=== PATIENT | female | born 1985 | race Caucasian/White ===

== ENCOUNTER 2016-08-08 09:32 | Emergency (ER) | payer MEDICAID ==
[~2016-08-08] VITALS: Ht 160 cm; Wt 63.6 kg
[~2016-08-08 09:32] MED LIST: BACTRIM DS 8001 TAB PO; CEFTIN500 MG PO; CEPHALEXIN500 M1 PO; DEPO-PROVER150 MG/M1 IM; DOXYCYCLINE 10100 MG PO; FLEXERIL 1010 MG/TAB PO; GENTAMICIN EYE D5 ML OD; MARNATAL-F1 CAP PO; MOTRIN 400400 MG/TAB PO; MOTRIN 600600 MG/TAB PO; MOTRIN 800800 MG/TAB PO; NEXIUM24HROTC PO; NO HOME MEDICATIONS; NORCO 325 MG-51 TAB PO; PERCOCET 325 MG1 TA2 PO; PRENATAL1 TA4 PO; PRENATAL1 TA5 PO; XANAX 0.5MG0.5 MG PO; ZITHROMAX Z PA250 MG PO
[2016-08-08 09:39] VITALS: BP 131/58; PULSE 64; TEMP 98.3
[2016-08-08] MEDS ORDERED: KLONOPIN 0.5MG0.5 MG PO (09:44)
[2016-08-08] MEDS ORDERED: ULTRAM 50MG TAB50 MG PO (10:05)
[2016-08-08] MEDS ORDERED: PEN-VEE K500 MG PO (10:05)
== END 2016-08-08 10:19 | disposition home or self-care (01) ==
LOC: COL.ER 09:32
DX: K08.89 Other specified disorders of teeth and supporting structures (principal); F17.210 Nicotine dependence, cigarettes, uncomplicated

== ENCOUNTER 2016-10-21 12:31 | Emergency (ER) | payer MEDICAID ==
[~2016-10-21] VITALS: Ht 160 cm; Wt 59.1 kg
[~2016-10-21 12:31] MED LIST changes: +KLONOPIN 0.5MG0.5 MG PO; +PEN-VEE K500 MG PO; +ULTRAM 50MG TAB50 MG PO
[2016-10-21 12:32] VITALS: BP 115/49; TEMP 98.2
[2016-10-21] MEDS ORDERED: DOXYCYCLINE 10100 MG PO (13:21)
[2016-10-21] MEDS ORDERED: NORCO 325 MG-51 TAB PO (13:21)
[2016-10-21 13:35] VITALS: PULSE 86
== END 2016-10-21 13:35 | disposition home or self-care (01) ==
LOC: COL.ER 12:31
DX: N61.1 Abscess of the breast and nipple (principal)

== ENCOUNTER 2016-12-04 17:40 | Emergency (ER) | payer MEDICAID ==
[~2016-12-04] VITALS: Ht 160 cm; Wt 56.8 kg
[2016-12-04 17:43] VITALS: BP 119/74; TEMP 98.6
[2016-12-04 18:32] LABS: PH 6 (5-8); SQUAMOUS EPITHELIAL 0-2 /hpf; URINE APPEARANCE Turbid; URINE BACTERIA Rare /hpf; URINE BILIRUBIN Negative (NEGATIVE); URINE BLOOD Negative (NEGATIVE); URINE COLOR Amber; URINE GLUCOSE Negative (NEGATIVE); URINE KETONE Negative (NEGATIVE); URINE UROBILINOGEN Negative (NEGATIVE); URINE WBC None Seen /hpf
[2016-12-04] MEDS ORDERED: MACROBID 1100 MG/CAP PO (19:11)
[2016-12-04 19:21] VITALS: PULSE 86
== END 2016-12-04 19:22 | disposition home or self-care (01) ==
LOC: COL.ER 17:40
PROVIDERS: Physician Assistant Medical
DX: N39.0 Urinary tract infection, site not specified (principal); K21.9 Gastro-esophageal reflux disease without esophagitis; F32.9 Major depressive disorder, single episode, unspecified; F17.210 Nicotine dependence, cigarettes, uncomplicated; Z98.51 Tubal ligation status

== ENCOUNTER 2017-03-10 13:37 | Emergency (ER) | payer MEDICAID ==
[~2017-03-10] VITALS: Ht 160 cm; Wt 59.1 kg
[~2017-03-10 13:37] MED LIST changes: +MACROBID 1100 MG/CAP PO
[2017-03-10 13:44] VITALS: TEMP 98.7
[2017-03-10 14:21] LABS: BASO # 0.1 (0.0-0.2); BASO % 0.7 % (0.0-2.0); EOS # 0.2 (0.0-0.7); EOS % 1.3 % (0-4.0); GRAN # 8.1 (1.4-6.5); GRAN % 64.1 % (42.2-75.2); HEMOGLOBIN 17.1 g/dl (12.5-16.0); LYMPH # 3.1 (1.2-3.4); LYMPH % 24.4 % (20.0-51.0); MEAN CELL VOLUME 91 fl (80.0-100.0); MEAN CORPUSCULAR HEMOGLOBIN 32 pg (27.0-31.0); MEAN CORPUSCULAR HGB CONC 35 g/dl (33.0-37.0); MEAN PLATELET VOLUME 9.5 fl (7.4-10.4); MONO # 1.2 (0.1-0.6); MONO % 9.2 % (1.7-9.3); PLATELET COUNT 324 K/mm3 (130-400); RED BLOOD COUNT 5.37 M/mm3 (4.10-5.30); REDCELL DISTRIBUTION WIDTH-CV 12.4 % (11.5-14.5); WHITE BLOOD COUNT 12.7 K/mm3 (4.8-10.8)
[2017-03-10 14:30] LABS: ADJUSTED CALCIUM 9.1 mg/dL (8.4-10.2); ALANINE AMINOTRANSFERASE 21 U/L (9-52); ALBUMIN 4.9 gm/dL (3.5-5.0); ALKALINE PHOSPHATASE 67 U/L (50-136); ANION GAP 12 mmol/L (7-16); BILIRUBIN,TOTAL 0.7 mg/dL (0.0-1.0); BLOOD UREA NITROGEN 10 mg/dL (7-17); CALCIUM 9.8 mg/dL (8.4-10.2); CARBON DIOXIDE 24 mmol/L (22-30); CHLORIDE 100 mmol/L (98-107); CREATININE, serum 0.59 mg/dL (0.52-1.25); GLUCOSE 106 mg/dL (74-106); POTASSIUM 3.9 mmol/L (3.4-5.0); SODIUM 137 mmol/L (137-145); TOTAL PROTEIN 8.5 gm/dL (6.4-8.2)
[2017-03-10 14:33] LABS: AMPHETAMINE URINE POSITIVE; BARBITURATES URINE NEGATIVE; BENZODIAZEPINES URINE NEGATIVE; BUPRENORPHINE URINE NEGATIVE; METHADONE URINE NEGATIVE; OPIATES URINE NEGATIVE; OXYCODONE URINE NEGATIVE; PHENCYCLIDINE URINE NEGATIVE; PROPOXYPHENE URINE NEGATIVE; THC CANNABINOIDS URINE POSITIVE
[2017-03-10 14:36] LABS: ACETAMINOPHEN < 10 ug/mL (10-30); SALICYLATE < 1.0 mg/dL
[2017-03-10 17:46] VITALS: BP 116/76; PULSE 99
== END 2017-03-10 20:13 ==
LOC: COL.ER 13:37
PROVIDERS: Physician Assistant
DX: R45.851 Suicidal ideations (principal); F32.9 Major depressive disorder, single episode, unspecified; F41.9 Anxiety disorder, unspecified

== ENCOUNTER 2018-12-29 11:17 | Emergency (ER) | payer MEDICAID ==
[~2018-12-29] VITALS: Ht 160 cm; Wt 61.4 kg
[2018-12-29 11:48] VITALS: TEMP 97.2
[2018-12-29 12:23] LABS: COLLECTION METHOD CLEAN CATCH
[2018-12-29 12:31] LABS: PH 6 (5-8); SQUAMOUS EPITHELIAL 0-2 /hpf; URINE APPEARANCE Clear; URINE BACTERIA None Seen /hpf; URINE BILIRUBIN Negative (NEGATIVE); URINE BLOOD Negative (NEGATIVE); URINE COLOR Straw; URINE GLUCOSE Negative (NEGATIVE); URINE KETONE Negative (NEGATIVE); URINE LEUKOCYTE ESTERASE Negative (NEGATIVE); URINE NITRATE Negative (NEGATIVE); URINE PROTEIN(semi-quant) Negative (NEGATIVE); URINE RBC None Seen /hpf; URINE UROBILINOGEN Negative (NEGATIVE)
[2018-12-29 12:34] LABS: BASO % 0.1 % (0.0-2.0); EOS % 0.1 % (0-4.0); GRAN # 5.1 (1.4-6.5); GRAN % 67.8 % (42.2-75.2); HEMATOCRIT 43.8 % (37.0-47.0); HEMOGLOBIN 15.3 g/dl (12.5-16.0); LYMPH # 1.9 (1.2-3.4); LYMPH % 25.9 % (20.0-51.0); MEAN CELL VOLUME 85 fl (80.0-100.0); MEAN CORPUSCULAR HEMOGLOBIN 30 pg (27.0-31.0); MEAN CORPUSCULAR HGB CONC 35 g/dl (33.0-37.0); MEAN PLATELET VOLUME 9.1 fl (7.4-10.4); MONO # 0.5 (0.1-0.6); PLATELET COUNT 241 K/mm3 (130-400); RED BLOOD COUNT 5.16 M/mm3 (4.10-5.30); REDCELL DISTRIBUTION WIDTH-CV 11.2 % (11.5-14.5)
[2018-12-29 12:47] LABS: ALANINE AMINOTRANSFERASE 9 U/L (9-52); ALBUMIN 3.7 gm/dL (3.5-5.0); ALKALINE PHOSPHATASE 43 U/L (50-136); ANION GAP 8 mmol/L (7-16); AST,SGOT 14 U/L (15-37); BILIRUBIN,TOTAL 0.5 mg/dL (0.0-1.0); BLOOD UREA NITROGEN 8 mg/dL (7-17); CALCIUM 9.2 mg/dL (8.4-10.2); CARBON DIOXIDE 26 mmol/L (22-30); CHLORIDE 104 mmol/L (98-107); CREATININE, serum 0.51 (0.52-1.25); GLUCOSE 95 mg/dL (74-106); SODIUM 138 mmol/L (137-145); TOTAL PROTEIN 6.9 gm/dL (6.4-8.2)
[2018-12-29 12:51] LABS: ACETAMINOPHEN < 10 ug/mL (10-30); ALCOHOL(ethanol),MEDICAL < 10 mg/dL; SALICYLATE < 1.0 mg/dL
[2018-12-29 13:08] LABS: TRICYCLIC ANTIDEPRESS URINE NEGATIVE
[2018-12-29 17:39] VITALS: BP 110/71; PULSE 84
== END 2018-12-29 17:58 ==
LOC: COL.ER 11:17
PROVIDERS: Nurse Practitioner Primary Care
DX: F32.9 Major depressive disorder, single episode, unspecified (principal); R45.851 Suicidal ideations; F17.210 Nicotine dependence, cigarettes, uncomplicated; Z98.51 Tubal ligation status; Z91.5 Personal history of self-harm

== ENCOUNTER 2019-02-15 14:27 | Emergency (ER) | payer MEDICAID ==
[~2019-02-15] VITALS: Ht 160 cm; Wt 68.2 kg
[2019-02-15 14:44] VITALS: BP 105/71; TEMP 98.6
[2019-02-15] MEDS ORDERED: LITHIUM CA150 MG/CAP PO (14:44)
[2019-02-15] MEDS ORDERED: DESYREL 50MG50 MG PO (14:44)
[2019-02-15] MEDS ORDERED: INDERAL 20MG20 MG PO (14:44)
[2019-02-15] MEDS ORDERED: AMOXICILLIN 50500 MG PO (15:45)
[2019-02-15 15:54] VITALS: PULSE 80
== END 2019-02-15 15:55 | disposition home or self-care (01) ==
LOC: COL.ER 14:27
DX: K02.9 Dental caries, unspecified (principal); K21.9 Gastro-esophageal reflux disease without esophagitis; F32.9 Major depressive disorder, single episode, unspecified; Z98.51 Tubal ligation status; F17.210 Nicotine dependence, cigarettes, uncomplicated

== ENCOUNTER 2019-05-20 15:52 | Emergency (ER) | payer MEDICAID ==
[~2019-05-20] VITALS: Ht 160 cm; Wt 65.9 kg
[~2019-05-20 15:52] MED LIST changes: +AMOXICILLIN 50500 MG PO; +DESYREL 50MG50 MG PO; +INDERAL 20MG20 MG PO; +LITHIUM CA150 MG/CAP PO
[2019-05-20 16:16] VITALS: BP 136/81; TEMP 99
[2019-05-20] MEDS ORDERED: ATARAX50 MG PO (17:28)
[2019-05-20] MEDS ORDERED: LEXAPRO20 MG PO (17:29)
[2019-05-20 18:17] VITALS: PULSE 118
[2019-05-20] MEDS ORDERED: CEPHALEXIN500 M1 PO (18:23)
== END 2019-05-20 18:35 | disposition home or self-care (01) ==
LOC: COL.ER 15:52
DX: S71.111A Laceration without foreign body, right thigh, initial encounter (principal); L08.9 Local infection of the skin and subcutaneous tissue, unspecified; F32.9 Major depressive disorder, single episode, unspecified; F17.210 Nicotine dependence, cigarettes, uncomplicated; X78.8XXA Intentional self-harm by other sharp object, initial encounter; Y92.009 Unspecified place in unspecified non-institutional (private) residence as the place of occurrence of the external cause

== ENCOUNTER 2019-06-23 01:04 | Emergency (ER) | payer MEDICAID ==
[~2019-06-23] VITALS: Ht 160 cm; Wt 61.4 kg
[~2019-06-23 01:04] MED LIST changes: +ATARAX50 MG PO; +LEXAPRO20 MG PO
[2019-06-23 01:42] LABS: BASO % 0.1 % (0.0-2.0); EOS % 0.3 % (0-4.0); GRAN % 44.4 % (42.2-75.2); HEMATOCRIT 41.4 % (37.0-47.0); HEMOGLOBIN 14.5 g/dl (12.5-16.0); LYMPH # 3.3 (1.2-3.4); LYMPH % 48.8 % (20.0-51.0); MEAN CELL VOLUME 85 fl (80.0-100.0); MEAN CORPUSCULAR HEMOGLOBIN 30 pg (27.0-31.0); MEAN CORPUSCULAR HGB CONC 35 g/dl (33.0-37.0); MEAN PLATELET VOLUME 9.3 fl (7.4-10.4); MONO # 0.4 (0.1-0.6); MONO % 6.3 % (1.7-9.3); PLATELET COUNT 282 K/mm3 (130-400); RED BLOOD COUNT 4.86 M/mm3 (4.10-5.30); REDCELL DISTRIBUTION WIDTH-CV 11.9 % (11.5-14.5)
[2019-06-23 01:51] LABS: ALANINE AMINOTRANSFERASE 13 U/L (9-52); ALBUMIN 3.9 gm/dL (3.5-5.0); ALCOHOL(ethanol),MEDICAL 163 mg/dL; ALKALINE PHOSPHATASE 52 U/L (50-136); ANION GAP 12 mmol/L (7-16); AST,SGOT 13 U/L (15-37); BILIRUBIN,TOTAL 0.2 mg/dL (0.0-1.0); BLOOD UREA NITROGEN 8 mg/dL (7-17); CALCIUM 8.6 mg/dL (8.4-10.2); CARBON DIOXIDE 21 mmol/L (22-30); CHLORIDE 111 mmol/L (98-107); CREATININE, serum 0.53 (0.52-1.25); GLUCOSE 96 mg/dL (74-106); MAGNESIUM 2.2 mg/dL (1.6-2.3); POTASSIUM 3.7 mmol/L (3.4-5.0); SODIUM 145 mmol/L (137-145)
[2019-06-23 01:53] LABS: ACETAMINOPHEN < 10 ug/mL (10-30); SALICYLATE < 1.0 mg/dL
[2019-06-23 02:21] LABS: TSH w REFLEX 0.015 uIU/mL (0.465-4.680)
[2019-06-23 05:32] LABS: COLLECTION METHOD CLEAN CATCH
[2019-06-23 05:38] LABS: MUCOUS Present /lpf; PH 6 (5-8); SQUAMOUS EPITHELIAL 0-2 /hpf; URINE APPEARANCE Hazy; URINE BACTERIA None Seen /hpf; URINE BILIRUBIN Negative (NEGATIVE); URINE BLOOD 3+ (NEGATIVE); URINE COLOR Yellow; URINE GLUCOSE Negative (NEGATIVE); URINE KETONE Negative (NEGATIVE); URINE LEUKOCYTE ESTERASE Trace (NEGATIVE); URINE NITRATE Negative (NEGATIVE); URINE PROTEIN(semi-quant) 1+ (NEGATIVE); URINE RBC >50 /hpf
[2019-06-23 05:44] LABS: TRICYCLIC ANTIDEPRESS URINE NEGATIVE
[2019-06-23] MEDS ORDERED: MACROBID 1100 MG/CAP PO (07:12)
[2019-06-23 12:10] VITALS: BP 107/61; PULSE 69; TEMP 98.2
== END 2019-06-23 12:10 | disposition home or self-care (01) ==
LOC: COL.ER 01:04
PROVIDERS: Emergency Medicine
DX: S51.812A Laceration without foreign body of left forearm, initial encounter (principal); F17.210 Nicotine dependence, cigarettes, uncomplicated; Z87.442 Personal history of urinary calculi; X78.9XXA Intentional self-harm by unspecified sharp object, initial encounter
CPT/HCPCS: J1200; J1630